=== PATIENT | male | born 1930 | race Caucasian/White ===

== ENCOUNTER 2019-06-01 11:58 | Inpatient (IN) | payer BC, MEDICAID ==
[~2019-06-01] VITALS: Ht 162.6 cm; Wt 62.6 kg
[2019-06-01] MEDS ORDERED: NACL 0.9% 1,000 ML IV SCH (12:08)
[2019-06-01 12:10] VITALS: BP 142/83
[2019-06-01 13:33] LABS: APPEARANCE,URINE SL CLOUDY (CLEAR); BILIRUBIN,URINE 1+ (NEGATIVE); BLOOD, URINE 1+ (NEGATIVE); LEUKOCYTE ESTERASE ,URINE NEGATIVE (NEGATIVE); NITRITE, URINE NEGATIVE (NEGATIVE); UGLUCOSE NEGATIVE (NEGATIVE)
[2019-06-01 13:34] LABS: COLOR,URINE AMBER (YELLOW)
[2019-06-01 13:41] LABS: HEMATOCRIT 39.2 % (36-52); HEMOGLOBIN 12.8 g/dL (12.0-18.0); MEAN CORPUSCULAR HEMOGLOBIN 31 pg (27-31); MEAN CORPUSCULAR HGB CONC 33 g/dL (33-37); MEAN CORPUSCULAR VOLUME 95.1 fL (80-94); PLATELET COUNT (AUTO) 191 K/uL (140-450); RED BLOOD CELL COUNT(AUTO) 4.12 MIL/uL (4.20-6.10); RED CELL DISTRIBUTION WIDTH 14.5 % (11.6-13.7); WHITE BLOOD COUNT (AUTO) 20.2 K/uL (4.8-10.8)
[2019-06-01 13:45] LABS: RBC,URINE 0-5 /HPF (0-5)
[2019-06-01 13:46] LABS: HYALINE CASTS, URINE 0-10 /LPF (None Seen); URINE AMORPHOUS URATE 1+ /HPF (None Seen); WBC,URINE 0-5 /HPF (0-5)
[2019-06-01 14:01] LABS: ANION GAP 12.9 (8-16); CARBON DIOXIDE 25.4 mmol/L (21-32); CHLORIDE 106 mmol/L (98-107); CREATININE 2.1 mg/dL (0.7-1.3); GLUCOSE 110 mg/dL (74-106); POTASSIUM 4.3 mmol/L (3.5-5.1); SODIUM SERUM 140 mmol/L (136-145); UREA NITROGEN, BLOOD 39 mg/dL (7-18)
[2019-06-01 14:16] LABS: ALBUMIN 2.3 g/dL (3.4-5.0); ASPARTATE AMINOTRANSFERASE 139 U/L (15-37); TOTAL BILIRUBIN 1.3 mg/dL (0.0-1.0)
[2019-06-01 14:18] LABS: BASOPHILS % (MANUAL) 0 % (0-2); EOSINOPHILS % (MANUAL) 0 % (0-4); LYMPHOCYTES % (MANUAL) 6 % (20-46); MONOCYTES % (MANUAL) 4 % (5-12)
[2019-06-01 14:39] LABS: AMYLASE 25 U/L (25-115); LIPASE 26 U/L (73-393); MAGNESIUM 1.9 mg/dL (1.8-2.4)
[2019-06-01] MEDS ORDERED: PIPERACILLIN/TAZOBACTAM 3.375 GM in DEXTROSE 5% 50 ML IV ONE (15:05)
[2019-06-01] MEDS ORDERED: PIPERACILLIN/TAZOBACTAM 3.375 GM VIAL IV ONE (15:10)
[2019-06-01 16:20] LABS: ACETONE, SERUM NEGATIVE (NEGATIVE)
[2019-06-01 17:07] LABS: C-REACTIVE PROTEIN QUANT 35.3 mg/dL (0.0-0.9)
[2019-06-01] MEDS ORDERED: ALBUTEROL 0.083% 2.5 MG/3 ML NEBU IH PRN (18:10)
[2019-06-01] MEDS ORDERED: ONDANSETRON 4 MG/2 ML VIAL IVP PRN (18:10)
[2019-06-01] MEDS ORDERED: HYDROcodone/APAP 5/325 MG 1 TAB TAB PO PRN (18:10)
[2019-06-01] MEDS ORDERED: MORPHINE SULFATE 2 MG/ML SYR IVP PRN (18:10)
[2019-06-01 20:00] VITALS: BP 130/81
[2019-06-01] MEDS: NACL 0.9% 1,000 ML IV SCH (21:19)
[2019-06-02] VITALS: BP 144/79
[2019-06-02 04:00] VITALS: BP 161/82
[2019-06-02 06:45] LABS: ANION GAP 14.2 (8-16); CHLORIDE 106 mmol/L (98-107); CREATININE 1.8 mg/dL (0.7-1.3); GLUCOSE 106 mg/dL (74-106); POTASSIUM 4.2 mmol/L (3.5-5.1); SODIUM SERUM 140 mmol/L (136-145); UREA NITROGEN, BLOOD 44 mg/dL (7-18)
[2019-06-02 06:51] LABS: MAGNESIUM 2.1 mg/dL (1.8-2.4); PHOSPHORUS 3.6 mg/dL (2.5-4.9)
[2019-06-02] MEDS: NACL 0.9% 1,000 ML IV SCH (07:26)
[2019-06-02 07:33] LABS: BASOPHILS % (AUTO) 0.1 % (0.0-2.0); HEMATOCRIT 35.3 % (36-52); HEMOGLOBIN 11.4 g/dL (12.0-18.0); LYMPHOCYTES # (AUTO) 1.2 K/uL (2.0-11.5); LYMPHOCYTES % (AUTO) 7.5 % (20.5-51.1); MEAN CORPUSCULAR HEMOGLOBIN 31 pg (27-31); MEAN CORPUSCULAR HGB CONC 32 g/dL (33-37); MEAN CORPUSCULAR VOLUME 95.8 fL (80-94); MONOCYTES % (AUTO) 6.3 % (1.7-9.3); NEUTROPHILS # (AUTO) 13.3 K/uL (1.8-7.7); NEUTROPHILS % (AUTO) 86.1 % (42.2-75.2); PLATELET COUNT (AUTO) 181 K/uL (140-450); RED BLOOD CELL COUNT(AUTO) 3.69 MIL/uL (4.20-6.10); WHITE BLOOD COUNT (AUTO) 15.5 K/uL (4.8-10.8)
[2019-06-02 08:41] VITALS: BP 131/49
[2019-06-02 12:34] VITALS: BP 160/89
[2019-06-02] MEDS ORDERED: cloNIDine 0.1 MG TAB PO PRN (14:35)
[2019-06-02] MEDS: DEXT 5% /NACL 0.9% 1,000 ML IV SCH (14:35)
[2019-06-02 16:45] VITALS: BP 109/62
[2019-06-03] VITALS: BP 150/78
[2019-06-03] MEDS ORDERED: VANCOMYCIN PER PHARMACY MC PRN (05:30)
[2019-06-03] MEDS ORDERED: VANCOMYCIN 1,000 MG in DEXTROSE 5% 250 ML IV SCH (05:50)
[2019-06-03] MEDS ORDERED: VANCOMYCIN 1,000 MG VIAL ONE (05:56)
[2019-06-03] MEDS: DEXT 5% /NACL 0.9% 1,000 ML IV SCH ×2 (06:07→23:55)
[2019-06-03 07:31] LABS: BASOPHILS % (AUTO) 0.3 % (0.0-2.0); EOSINOPHILS % (AUTO) 0.2 % (0.0-4.0); HEMATOCRIT 33.8 % (36-52); LYMPHOCYTES # (AUTO) 1.4 K/uL (2.0-11.5); LYMPHOCYTES % (AUTO) 11.8 % (20.5-51.1); MEAN CORPUSCULAR HEMOGLOBIN 31 pg (27-31); MEAN CORPUSCULAR HGB CONC 33 g/dL (33-37); MEAN CORPUSCULAR VOLUME 95.3 fL (80-94); MONOCYTES # (AUTO) 0.9 K/uL (0.8-1.0); MONOCYTES % (AUTO) 7.9 % (1.7-9.3); NEUTROPHILS # (AUTO) 9.4 K/uL (1.8-7.7); NEUTROPHILS % (AUTO) 79.8 % (42.2-75.2); PLATELET COUNT (AUTO) 166 K/uL (140-450); RED BLOOD CELL COUNT(AUTO) 3.55 MIL/uL (4.20-6.10); RED CELL DISTRIBUTION WIDTH 14.8 % (11.6-13.7); WHITE BLOOD COUNT (AUTO) 11.8 K/uL (4.8-10.8)
[2019-06-03 08:00] VITALS: BP 177/91
[2019-06-03 08:21] LABS: BILIRUBIN,DIRECT 0.5 mg/dL (0.0-0.3); TOTAL BILIRUBIN 1.3 mg/dL (0.0-1.0)
[2019-06-03 08:22] LABS: ALBUMIN 1.8 g/dL (3.4-5.0)
[2019-06-03 08:28] LABS: MAGNESIUM 2.2 mg/dL (1.8-2.4)
[2019-06-03 12:21] LABS: ANION GAP 13.5 (8-16); CARBON DIOXIDE 23.1 mmol/L (21-32); CHLORIDE 109 mmol/L (98-107); CREATININE 1.5 mg/dL (0.7-1.3); GLUCOSE 135 mg/dL (74-106); POTASSIUM 3.6 mmol/L (3.5-5.1); SODIUM SERUM 142 mmol/L (136-145); UREA NITROGEN, BLOOD 35 mg/dL (7-18)
[2019-06-03 16:00] VITALS: BP 149/85
[2019-06-04] VITALS: BP 146/79
[2019-06-04] MEDS: DEXT 5% /NACL 0.9% 1,000 ML IV SCH ×2 (05:16→23:06)
[2019-06-04] MEDS: VANCOMYCIN 500 MG in DEXTROSE 5% 100 ML IV SCH (05:16)
[2019-06-04 08:00] VITALS: BP 157/89
[2019-06-04 08:53] LABS: BASOPHILS % (AUTO) 0.3 % (0.0-2.0); EOSINOPHILS % (AUTO) 0.2 % (0.0-4.0); HEMATOCRIT 33.4 % (36-52); HEMOGLOBIN 10.9 g/dL (12.0-18.0); LYMPHOCYTES # (AUTO) 1.6 K/uL (2.0-11.5); LYMPHOCYTES % (AUTO) 14.9 % (20.5-51.1); MEAN CORPUSCULAR HEMOGLOBIN 31 pg (27-31); MEAN CORPUSCULAR HGB CONC 33 g/dL (33-37); NEUTROPHILS # (AUTO) 8.3 K/uL (1.8-7.7); NEUTROPHILS % (AUTO) 75.6 % (42.2-75.2); PLATELET COUNT (AUTO) 163 K/uL (140-450); RED BLOOD CELL COUNT(AUTO) 3.51 MIL/uL (4.20-6.10); RED CELL DISTRIBUTION WIDTH 14.7 % (11.6-13.7)
[2019-06-04 09:26] LABS: PHOSPHORUS 2.7 mg/dL (2.5-4.9)
[2019-06-04 10:15] LABS: ANION GAP 10.5 (8-16); CHLORIDE 107 mmol/L (98-107); CREATININE 1.1 mg/dL (0.7-1.3); GLUCOSE 124 mg/dL (74-106); POTASSIUM 3.5 mmol/L (3.5-5.1); SODIUM SERUM 139 mmol/L (136-145); UREA NITROGEN, BLOOD 24 mg/dL (7-18)
[2019-06-04 16:00] VITALS: BP 156/89
[2019-06-05] VITALS: BP 153/80
[2019-06-05] MEDS: VANCOMYCIN 500 MG in DEXTROSE 5% 100 ML IV SCH (05:11)
[2019-06-05 06:32] LABS: BASOPHILS % (AUTO) 0.3 % (0.0-2.0); EOSINOPHILS # (AUTO) 0.1 K/uL (0-0.4); EOSINOPHILS % (AUTO) 0.7 % (0.0-4.0); HEMATOCRIT 31.8 % (36-52); HEMOGLOBIN 10.3 g/dL (12.0-18.0); LYMPHOCYTES # (AUTO) 1.8 K/uL (2.0-11.5); LYMPHOCYTES % (AUTO) 16.1 % (20.5-51.1); MEAN CORPUSCULAR HEMOGLOBIN 31 pg (27-31); MEAN CORPUSCULAR HGB CONC 32 g/dL (33-37); MEAN CORPUSCULAR VOLUME 95.9 fL (80-94); MONOCYTES # (AUTO) 1.1 K/uL (0.8-1.0); MONOCYTES % (AUTO) 9.8 % (1.7-9.3); NEUTROPHILS # (AUTO) 8.4 K/uL (1.8-7.7); NEUTROPHILS % (AUTO) 73.1 % (42.2-75.2); PLATELET COUNT (AUTO) 177 K/uL (140-450); RED BLOOD CELL COUNT(AUTO) 3.31 MIL/uL (4.20-6.10); RED CELL DISTRIBUTION WIDTH 15.1 % (11.6-13.7); WHITE BLOOD COUNT (AUTO) 11.4 K/uL (4.8-10.8)
[2019-06-05 06:50] LABS: PHOSPHORUS 2.7 mg/dL (2.5-4.9)
[2019-06-05 06:54] LABS: ALBUMIN 1.7 g/dL (3.4-5.0); ANION GAP 10.1 (8-16); ASPARTATE AMINOTRANSFERASE 122 U/L (15-37); CARBON DIOXIDE 25.5 mmol/L (21-32); CHLORIDE 107 mmol/L (98-107); GLUCOSE 119 mg/dL (74-106); POTASSIUM 3.6 mmol/L (3.5-5.1); SODIUM SERUM 139 mmol/L (136-145); TOTAL BILIRUBIN 1.1 mg/dL (0.0-1.0); UREA NITROGEN, BLOOD 17 mg/dL (7-18)
[2019-06-05 08:00] VITALS: BP 162/83
[2019-06-05] MEDS ORDERED: cloNIDine 0.1 MG TAB PO SCH (12:00)
[2019-06-05 13:38] VITALS: BP 104/60
== END 2019-06-05 14:55 | disposition hospice, home (50) | DRG 871 ==
LOC: MED 11:58 → MTU 18:10 → OBSVTOIN 06-02 14:27
PROVIDERS: ADMIT Internal Medicine Pulmonary Disease; ATTEND Internal Medicine Pulmonary Disease
DX: A41.9 Sepsis, unspecified organism (principal); E43 Unspecified severe protein-calorie malnutrition; S32.018A Other fracture of first lumbar vertebra, initial encounter for closed fracture; K80.00 Calculus of gallbladder with acute cholecystitis without obstruction; E86.0 Dehydration; R73.9 Hyperglycemia, unspecified; D18.09 Hemangioma of other sites; K57.30 Diverticulosis of large intestine without perforation or abscess without bleeding; K59.09 Other constipation; N28.1 Cyst of kidney, acquired; R13.10 Dysphagia, unspecified; R09.02 Hypoxemia; R62.7 Adult failure to thrive; Z51.5 Encounter for palliative care; W06.XXXA Fall from bed, initial encounter; Z68.23 Body mass index [BMI] 23.0-23.9, adult; Y93.89 Activity, other specified; Y92.89 Other specified places as the place of occurrence of the external cause; Y99.8 Other external cause status
CPT/HCPCS: 96361; 96365; 99218; 99285; G0378; 36415; 36600; 70450; 71045; 76700; 78445; 80048; 80053; 80076; 81001; 82009; 82150; 82803; 83605; 83690; 83735; 83880; 84100; 84484; 84550; 85025; 85610; 85730; 86140; 86886; 86900; 86901; 87040; 87081; 87086; 87186; 93005; 97110; 97112; 97530; C1758; J2543; J3370; J7030; J7042; J7060; Q0092